=== PATIENT | female | born 1985 | race Caucasian/White ===

== ENCOUNTER 2019-09-18 09:13 | Day surgery (SDC) | payer BC ==
[~2019-09-18] VITALS: Ht 162.6 cm; Wt 61.5 kg
[2019-09-18 10:39] VITALS: BP 119/82
[2019-09-18] MEDS ORDERED: SODIUM CHLORIDE 0.9% 1,000 ML IV SCH (10:41)
[2019-09-18] MEDS ORDERED: FENTANYL PF 250 MCG/5ML ONE (11:29)
[2019-09-18] MEDS ORDERED: ISOPROTERENOL 0.2MG/ML, 5ML ONE (11:29)
[2019-09-18] MEDS ORDERED: LIDOCAINE 1%, 20ML ONE (11:29)
[2019-09-18] MEDS ORDERED: MIDAZOLAM 1 MG/ML, 5ML ONE (11:29)
[2019-09-18 11:55] LABS: HCG UR SG 1.021 (1.003-1.030)
[2019-09-18] MEDS ORDERED: ACETAMINOPHEN 325 MG TABLET PO ONE (15:30)
[2019-09-18] MEDS ORDERED: ACETAMINOPHEN 325 MG TABLET ONE (15:32)
== END 2019-09-18 17:50 | disposition home or self-care (01) ==
LOC: CACL 09:13
PROVIDERS: ATTEND Internal Medicine Cardiovascular Disease
DX: I47.2 Ventricular tachycardia (principal); I49.3 Ventricular premature depolarization; Z79.899 Other long term (current) drug therapy
CPT/HCPCS: 81025; 93623; 93654; 93655; 99156; 99157; C1730; C1732; C1894; J2250; J3010